=== PATIENT | male | born 1980 | race Two or more races ===

== ENCOUNTER 2017-12-14 12:40 | Emergency (ER) | payer MEDICAID ==
[~2017-12-14] VITALS: Ht 170.2 cm; Wt 102.0 kg
[~2017-12-14 12:40] MED LIST: NO HOME MEDS
[2017-12-14 12:45] VITALS: BP 129/74
[2017-12-14] MEDS ORDERED: AMOX500C2 PO (13:20)
[2017-12-14] MEDS ORDERED: HYDR-3965 PO (13:20)
== END 2017-12-14 13:36 | disposition home or self-care (01) ==
LOC: ER 12:40
DX: K08.89 Other specified disorders of teeth and supporting structures (principal); Z79.2 Long term (current) use of antibiotics; Z79.899 Other long term (current) drug therapy
CPT/HCPCS: 99283

== ENCOUNTER 2018-06-30 23:05 | Emergency (ER) | payer MEDICAID ==
[~2018-06-30] VITALS: Ht 170.2 cm; Wt 85.0 kg
[2018-06-30 23:11] VITALS: BP 141/89
[2018-07-01] MEDS ORDERED: METR250T PO (00:36)
[2018-07-01] MEDS ORDERED: CIPR-259 PO (00:36)
[2018-07-01] MEDS ORDERED: HYDR-4383 PO (00:36)
[2018-07-01] MEDS ORDERED: ciprofloxacin 250mg tablet PO ONE (00:40)
[2018-07-01] MEDS ORDERED: HYDROcodone/acetaminophen 10/325mg tab PO ONE (00:40)
== END 2018-07-01 01:04 | disposition home or self-care (01) ==
LOC: ER 23:06
DX: K61.2 Anorectal abscess (principal)
CPT/HCPCS: 99283

== ENCOUNTER 2023-01-09 21:09 | Emergency (ER) | payer MEDICAID ==
[~2023-01-09] VITALS: Ht 167.6 cm; Wt 94.5 kg
[~2023-01-09 21:09] MED LIST changes: +HYDR-4383 PO
[2023-01-09 21:16] VITALS: BP 123/88; PULSE 95; RESP 14; TEMP 98.3; O2SAT 96
[2023-01-09] MEDS ORDERED: CEPH-585 PO (23:38)
[2023-01-09] MEDS ORDERED: NAPR-56 PO (23:38)
[2023-01-09] MEDS ORDERED: SULF1TAB49 PO (23:38)
== END 2023-01-09 23:47 | disposition home or self-care (01) ==
LOC: ER 21:10
DX: L02.31 Cutaneous abscess of buttock (principal); Z79.899 Other long term (current) drug therapy
CPT/HCPCS: 99283

== ENCOUNTER 2023-09-01 04:27 | Emergency (ER) | payer MEDICAID ==
[~2023-09-01] VITALS: Ht 167.6 cm; Wt 95.2 kg
[~2023-09-01 04:27] MED LIST changes: +CEPH-585 PO
[2023-09-01 04:30] VITALS: TEMP 98
[2023-09-01 05:55] LABS: BASOPHILS # (AUTO) 0.1 X10'3 (0-0.2); BASOPHILS % (AUTO) 0.6 % (0-1); EOSINOPHILS # (AUTO) 0.2 X10'3 (0-0.9); HEMATOCRIT 40.4 % (42.0-52.0); HEMOGLOBIN 13.7 g/dl (14.0-17.9); LYMPHOCYTES # (AUTO) 2.8 X10'3 (1.1-4.8); LYMPHOCYTES % (AUTO) 23.4 % (21-51); MEAN CORPUSCULAR HEMOGLOBIN 27.4 PG (27.0-31.0); MEAN CORPUSCULAR HGB CONC 33.8 g/dL (33.0-36.5); MEAN CORPUSCULAR VOLUME 81.2 FL (78-98); MEAN PLATELET VOLUME 9.7 FL (7.4-10.4); MONOCYTES # (AUTO) 0.9 X10'3 (0-0.9); MONOCYTES % (AUTO) 7.5 % (2-12); NEUTROPHILS # (AUTO) 7.9 X10'3 (1.8-7.7); NEUTROPHILS % (AUTO) 66.5 % (42-75); PLATELET COUNT 250 X10'3 (140-440); RED BLOOD COUNT 4.98 X10'6 (4.70-6.10); RED CELL DISTRIBUTION WIDTH 13.4 % (11.5-14.5); WHITE BLOOD COUNT 11.9 X10'3 (4.5-11.0)
[2023-09-01 06:00] LABS: ALANINE AMINOTRANSFERASE 87 U/L (12-78); ALBUMIN 3.5 G/DL (3.4-5.0); ALBUMIN/GLOBULIN RATIO 0.7 (1.1-1.5); ALKALINE PHOSPHATASE 77 IU/L (46-116); ANION GAP 9 (8-16); ASPARTATE AMINO TRANSFERASE 33 U/L (10-37); BLOOD UREA NITROGEN 16 MG/DL (7-18); BUN/CREATININE RATIO 14.2 (10.0-20.0); CALCIUM 9.3 MG/DL (8.5-10.1); CHLORIDE 100 MMOL/L (99-107); CREATININE 1.13 MG/DL (0.60-1.10); GLUCOSE 247 MG/DL (70-104); POTASSIUM 3.7 MMOL/L (3.5-5.1); SODIUM 138 MMOL/L (135-145); TOTAL CARBON DIOXIDE 28.7 MMOL/L (24-32); TOTAL PROTEIN 8.2 G/DL (6.4-8.2); eCRCL 77 ML/MIN; eGFR 71 ML/MIN
[2023-09-01 06:05] LABS: LIPASE 47 U/L (16-77); MAGNESIUM 1.7 MG/DL (1.5-2.4)
[2023-09-01 06:26] VITALS: BP 127/88; PULSE 81; O2SAT 96
[2023-09-01 06:29] VITALS: RESP 16
[2023-09-01] MEDS ORDERED: ONDA4TAB12 PO (08:13)
== END 2023-09-01 08:15 | disposition home or self-care (01) ==
LOC: ER 04:27
DX: R11.2 Nausea with vomiting, unspecified (principal); E78.00 Pure hypercholesterolemia, unspecified; E11.9 Type 2 diabetes mellitus without complications; Z79.2 Long term (current) use of antibiotics; Z79.899 Other long term (current) drug therapy
CPT/HCPCS: 36415; 80053; 83690; 83735; 84484; 85025; 99283